=== PATIENT | male | born 1970 | race Caucasian/White ===

== ENCOUNTER 2016-07-28 16:02 | Emergency (ER) | payer SELFPAY ==
[~2016-07-28] VITALS: Ht 175.3 cm; Wt 85.0 kg
[2016-07-28 16:04] VITALS: BP 167/98; PULSE 100; TEMP 99.5
[2016-07-28] MEDS ORDERED: NORCO 325 MG-51 TAB PO (17:40)
== END 2016-07-28 18:05 | disposition home or self-care (01) ==
LOC: COL.ER 16:02
DX: S92.001A Unspecified fracture of right calcaneus, initial encounter for closed fracture (principal); X50.9XXA Other and unspecified overexertion or strenuous movements or postures, initial encounter